=== PATIENT | female | born 1965 | race African-American/Black ===

== ENCOUNTER 2018-02-17 18:45 | Observation (INO) ==
[2018-02-17] MEDS ORDERED: ASPIRIN 325 MG TABLET PO STA (19:14)
[2018-02-17] MEDS ORDERED: MORPHINE 4 MG/1 ML VIAL IV STA (19:14)
[2018-02-17] MEDS ORDERED: ONDANSETRON 4 MG/2 ML VIAL IV STA (19:14)
[2018-02-17] MEDS ORDERED: NITROGLYCERIN 2% OINT 1 INCH/GM PACK TOP STA (19:14)
[2018-02-17 19:21] LABS: Basophils % 0.2 % (0.0-0.8); Eosinophils # 0.2 10*3/uL (0.0-0.87); Eosinophils % 2.4 % (0.00-10.9); Hematocrit 41.1 VOL% (35.7-47.0); Hemoglobin 12.9 GM/DL (12.0-16.0); Immature Granulocytes % 0.2 %; Immature Granulocytes Absolute 0.02 #; Lymphocytes # 2.9 10*3/uL (1.4-4.0); Lymphocytes % 35.5 % (21.3-54.2); Mean Corpuscular HGB Conc 31.4 GM/DL (32-36); Mean Corpuscular Hemoglobin 28 PG (27-34); Mean Corpuscular Volume 89.5 FL (87-102); Mean Platelet Volume 11.3 FL (9.6-12.0); Monocytes # 0.5 10*3/uL (0.11-0.8); Monocytes % 5.7 % (1.7-12.7); Neutrophils # 4.6 10*3/uL (1.4-7.4); Platelet Count 184 T/CUMM (130-400); Red Blood Count 4.59 MC/CUMM (3.8-5.5); Red Cell Distribution Width 15.2 % (9.3-17.3); White Blood Count 8.2 T/CUMM (4-12)
[2018-02-17 19:34] LABS: PT Patient Result 10.9 SECS
[2018-02-17 19:41] LABS: Alanine Aminotransferase 21 U/L (13-56); Alkaline Phosphatase 84 U/L (45-117); Aspartate Amino Transferase 11 U/L (0-37); Bilirubin,Total < 0.39 MG/DL (0.2-1.0); Blood Urea Nitrogen 11 MG/DL (7-18); Calcium 8.9 MG/DL (8.5-10.1); Glucose 106 MG/DL (74-106); Osmolality,Calculated 277.4 MOS/KG (273-304); Potassium 3.7 MMOL/L (3.5-5.1); Sodium 140 MMOL/L (136-145); Total Protein 7.6 G/DL (6.4-8.3)
[2018-02-17] MEDS ORDERED: MAGNESIUM SULF RIDER 2 GM in PREMIX 1 EACH IV STA (19:50)
[2018-02-17] MEDS ORDERED: FUROSEMIDE 40 MG/4 ML VIAL IV STA (19:50)
[2018-02-17] MEDS ORDERED: DEXTROSE 50% 25 GM/50 ML VIAL IV PRN (22:03)
[2018-02-17] MEDS ORDERED: DOCUSATE SODIUM 100 MG CAPSULE PO PRN (22:03)
[2018-02-17] MEDS ORDERED: IBUPROFEN 800 MG TABLET PO PRN (22:03)
[2018-02-17] MEDS ORDERED: GLUCAGON 1 MG VIAL IM PRN (22:03)
[2018-02-17] MEDS ORDERED: PROMETHAZINE 25 MG TABLET PO PRN (22:03)
[2018-02-17] MEDS: INSULIN LISPRO 100 UNIT/ML SUBCUT SCH (23:10)
[2018-02-18 05:25] LABS: Risk Ratio 3.14; Thyroid Stimulating Hormone 0.736 uIU/ml (0.358-3.74); VLDL CHOLESTEROL 18.8 MG/DL
[2018-02-18] MEDS ORDERED: INFLUENZA VIRUS VACCINE 0.5 ML SYRINGE IM ONE (08:44)
[2018-02-18] MEDS: INSULIN LISPRO 100 UNIT/ML SUBCUT SCH ×4 (08:52→20:13)
[2018-02-18] MEDS: LOSARTAN 50 MG TABLET PO SCH (09:28)
[2018-02-18] MEDS: FUROSEMIDE 40 MG TABLET PO SCH (09:28)
[2018-02-18] MEDS: ENOXAPARIN 40 MG/0.4 ML SYRINGE SUBCUT SCH (09:29)
[2018-02-18] MEDS: ATENOLOL 50 MG TABLET PO SCH (09:29)
[2018-02-18] MEDS: amLODIPine 10 MG TABLET PO SCH (09:29)
[2018-02-18] MEDS: ATORVASTATIN 40 MG TABLET PO SCH (09:29)
[2018-02-19 00:59] LABS: Troponin I < 0.015 NG/ML (0.00-0.045)
[2018-02-19 02:43] LABS: Basophils % 0.3 % (0.0-0.8); Eosinophils # 0.2 10*3/uL (0.0-0.87); Eosinophils % 3.1 % (0.00-10.9); Hematocrit 39.1 VOL% (35.7-47.0); Hemoglobin 12.3 GM/DL (12.0-16.0); Immature Granulocytes % 0.2 %; Immature Granulocytes Absolute 0.01 #; Lymphocytes # 2.9 10*3/uL (1.4-4.0); Lymphocytes % 43.9 % (21.3-54.2); Mean Corpuscular HGB Conc 31.5 GM/DL (32-36); Mean Corpuscular Hemoglobin 28 PG (27-34); Mean Corpuscular Volume 90.3 FL (87-102); Mean Platelet Volume 11.3 FL (9.6-12.0); Monocytes # 0.4 10*3/uL (0.11-0.8); Monocytes % 6.3 % (1.7-12.7); Neutrophils % 46.2 % (38.7-73.9); Platelet Count 174 T/CUMM (130-400); Red Blood Count 4.33 MC/CUMM (3.8-5.5); Red Cell Distribution Width 15.2 % (9.3-17.3); White Blood Count 6.5 T/CUMM (4-12)
[2018-02-19 03:11] LABS: Calcium 8.3 MG/DL (8.5-10.1); Osmolality,Calculated 279.3 MOS/KG (273-304); Potassium 3.9 MMOL/L (3.5-5.1)
[2018-02-19 03:20] LABS: Troponin I < 0.015 NG/ML (0.00-0.045)
[2018-02-19] MEDS: LOSARTAN 50 MG TABLET PO SCH (08:34)
[2018-02-19] MEDS: ATENOLOL 50 MG TABLET PO SCH (08:34)
[2018-02-19] MEDS: ATORVASTATIN 40 MG TABLET PO SCH (08:35)
[2018-02-19] MEDS: FUROSEMIDE 40 MG TABLET PO SCH (08:35)
[2018-02-19] MEDS: ENOXAPARIN 40 MG/0.4 ML SYRINGE SUBCUT SCH (08:35)
[2018-02-19] MEDS: amLODIPine 10 MG TABLET PO SCH (08:35)
[2018-02-19 09:20] VITALS: BP 150/81
== END 2018-02-19 09:27 | disposition home or self-care (01) ==
LOC: EDBD → EDUNIT# → N.EDINP 18:45 → N.ED 18:45 → N.4E 23:05
PROVIDERS: ADMIT Emergency Medicine; ATTEND Emergency Medicine